=== PATIENT | female | born 1940 | race Caucasian/White ===

== ENCOUNTER → 2017-07-14 | Outpatient (CLI) | payer BC, OTHER ==
[~2017-07-14] MED LIST: ALEVE220 MG PO; AMBIEN 5 MG TABL5 M1 PO; ASPIR 8181 MG PO; BENICAR20 MG PO; CURCUMIN1 GM MC; FISH OIL 1,0001 EAC5; FOLIC ACID1 MG PO; GLUCOSAMIN-CHO1 EACH; IFEREX 150150 MG PO; KEFLEX500 M2 PO; LIORESAL 10 MG10 MG PO; LIPITOR 20 MG T20 M1 PO; MAGOX 400400 MG PO; MOTION RELIEF25 MG PO; NATURAL BP MED; PREDNISONE 10 M10 M1 PO; PROZAC20 MG PO; RED YEAST RICE600 MG; TUMS PO; VITAMIN B COMP1 EAC7; VITAMIN D400 UNI1; VITCB500GO
== END ==
LOC: M.CT 10:26
DX: K80.50 Calculus of bile duct without cholangitis or cholecystitis without obstruction (principal); K44.9 Diaphragmatic hernia without obstruction or gangrene; M47.896 Other spondylosis, lumbar region; J98.11 Atelectasis; D50.9 Iron deficiency anemia, unspecified; K31.89 Other diseases of stomach and duodenum; I70.0 Atherosclerosis of aorta; R07.89 Other chest pain

== ENCOUNTER 2017-08-27 14:57 | Emergency (ER) | payer BC, OTHER ==
[~2017-08-27] VITALS: Ht 160 cm; Wt 45.4 kg
[~2017-08-27 14:57] MED LIST changes: -ALEVE220 MG PO; -ASPIR 8181 MG PO; -FOLIC ACID1 MG PO; -IFEREX 150150 MG PO; -KEFLEX500 M2 PO; -LIORESAL 10 MG10 MG PO; -LIPITOR 20 MG T20 M1 PO; -PREDNISONE 10 M10 M1 PO; -PROZAC20 MG PO
[2017-08-27] MEDS ORDERED: AMBIEN 5 MG TABL5 M1 PO (15:18)
[2017-08-27] MEDS ORDERED: PREDNISONE 10 M10 M1 PO (16:01)
[2017-08-27] MEDS ORDERED: KEFLEX500 M2 PO (16:01)
[2017-08-27 16:24] VITALS: BP 139/65
== END 2017-08-27 16:27 | disposition home or self-care (01) ==
LOC: M.ERS 14:57
DX: L03.116 Cellulitis of left lower limb (principal); E78.5 Hyperlipidemia, unspecified; I10 Essential (primary) hypertension; F41.9 Anxiety disorder, unspecified

== ENCOUNTER 2017-09-22 15:05 | Inpatient (IN) | payer BC, OTHER ==
[~2017-09-22] VITALS: Ht 160 cm; Wt 44.0 kg
[~2017-09-22 15:05] MED LIST changes: +KEFLEX500 M2 PO; +PREDNISONE 10 M10 M1 PO
[2017-09-22] MEDS ORDERED: LIPITOR 20 MG T20 M1 PO (15:16)
[2017-09-22] MEDS ORDERED: ASPIR 8181 MG PO (15:17)
[2017-09-22] MEDS ORDERED: PROZAC20 MG PO (15:18)
[2017-09-22 18:15] VITALS: BP 155/89
--- NOTE | 2017-09-22 18:55 | NUR ---
ASSUMMED CARE OF PT UPON ADMISSION TO UNIT, PT ALERT AND ORIENTED, PT TRANSFERS WITH MIN/MOD ASSIST OF 1 AND GB, PT COMPLAINS OF PAIN IN RIGHT KNEE, DENIES NAUSEA, TOLERATING SOFT DIET FOR DINNER, PT AND DAUGHTER EDUCATED ON REHAB ROUTINE, ORIENTED TO ROOM, ASSESSMENT COMPLETE, WILL CONTINUE TO MONITER.
--- NOTE | 2017-09-22 20:55 | NUR ---
SITTING UP IN BED WATCHING NEWS ON TV. TYLENOL GIVEN FOR C/O ARTHRITIC PAIN IN RIGHT KNEE. TOOK MEDS WHOLE ONE AT A TIME WITH APPLE JUICE. SAT UP ON SIDE OF BED WHILE TAKING THE MEDS.
[2017-09-23 04:48] LABS: HEMATOCRIT 28.4 % (37.0-47.0); HEMOGLOBIN 9.6 gm/dL (12.0-15.0); MCH 29.5 pg (26.0-34.0); MCV 86.9 fL (80.0-100.0); MPV 6.8 fl. (7.2-11.1); RBC 3.27 mil/uL (4.20-5.00)
[2017-09-23 04:57] LABS: CALCIUM 8.5 mg/dL (8.5-10.1); CREATININE 0.7 mg/dL (0.6-1.3); POTASSIUM 4.1 mmol/L (3.5-5.1)
--- NOTE | 2017-09-23 05:58 | NUR ---
UP X ONE DURING THE NIGHT TO THE BATHROOM TO VOID. INCONTINENT OF URINE ON THE FLOOR. NO FURTHER C/O PAIN. HOURLY ROUNDING IN PROGRESS.
[2017-09-23 08:00] VITALS: BP 152/70
--- NOTE | 2017-09-23 12:48 | NUR ---
Nutrition: Pt admitted to Rehab with CVA. No albumin recorded. Pt is tolerating Ground meals. RX noted. PMHx noted. Pt not in room at time of visit, 12:25. +BM. Eating ~60% of meals. Wt: 95#, last month wt was 100#. Pt is underweight. RD ordered Boost+ t.i.d. for added nutrition. will follow weekly for po intake, supplement intake, wt, labs. Mild risk.
--- NOTE | 2017-09-23 13:09 | NUR ---
PT CARE ASSUMED THIS AM, ASSESSMENT AND VITAL SIGNS COMPLETED DOCUMENTED. PT HAS BEEN PLEASANT AND COOPERATIVE. RESIDUAL LEFT FACIAL DROOP, SLURRED SPEECH AND LEFT SIDED WEAKNESS NOTED DURING OUR INTERACTION THIS AM. PT ENCOURAGED TO CALL FOR ASSISTANCE, NO IMPULSIVE BEHAVIOR NOTED THIS AM. FALL PRECAUTIONS AND HOURLY ROUNDING OBSERVED.
[2017-09-23 19:46] VITALS: BP 143/72
--- NOTE | 2017-09-23 20:55 | NUR ---
RESTING QUIETLY IN BED AND WATCHING TV. TYLENOL GIVEN FOR C/O ARTHRITIC PAIN IN LEFT KNEE. TOOK MEDS WHOLE TWO AT A TIME WITH TEA.
--- NOTE | 2017-09-24 05:38 | NUR ---
UP X TWO DURING THE NIGHT TO THE BATHROOM TO VOID. NO FURTHER C/O PAIN. HOURLY ROUNDING IN PROGRESS.
[2017-09-24 07:48] VITALS: BP 149/80
--- NOTE | 2017-09-24 13:47 | NUR ---
SW met with pt to complete initial assessment, introduce self, and SW role as well as to review team conference summary and discuss safe dc planning. Pt alert and oriented and pleasant. Pt lives at home with her and a dtr plans to stay with pt at dc to assist as needed. Pt has a RW and a cane. SW relayed information reported from therapists during team conference and team's recommendation to reteam to reassess pt length of stay during team conference next Thursday. Pt in agreement with plan. No other needs or concerns expressed. SW to continue to follow to assist with safe dc planning.
--- NOTE | 2017-09-24 16:54 | NUR ---
AM ASSESSMENT AND VITAL SIGNS COMPLETED DOCUMENTED. PT PARTICIPATED WITH ALL THERAPIES AND IS PROGRESSING WELL. DIET HAS BEEN CHANGED TO REGULAR. PT CALLS FOR ASSISTANCE WHEN SHE NEEDS HELP. FALL PRECAUTIONS AND HOURLY ROUNDING CONTINUE.
[2017-09-24 20:23] VITALS: BP 154/75
--- NOTE | 2017-09-25 05:32 | NUR ---
ASSUMED CARES AT 1915. PT ALERT AND ORIENTED. PLEASANT. CVA WITH LEFT SIDE WEAKNESS. LEFT ARM WEAK. TAKES PILLS WHOLE WITHOUT ISSUES. SHE IS A MIN ASSIST WITH GAIT BELT. UP TO BATHROOM FEW TIMES DURING THE NIGHT. DOES PERICARES BUT NEEDS ASSIST WITH ONE SIDED DRESSING. WEARS PULLUPS. HAS STRESS INCONTINENCE. TYLENOL GIVEN FOR RIGHT KNEE PAIN. PT MOVES WELL IN BED AND IS ABLE TO SCOOT UP IN BED. SHE CAN TURN SELF IN BED. USED CALL LIGHT APPROPRIATELY. BED ALARM ON.
[2017-09-25 07:30] VITALS: BP 140/75
--- NOTE | 2017-09-25 16:53 | NUR ---
PT HAS PARTICIPATED WITH THERAPIES AND CALLS FOR ASSIST TO BATHROOM. PT AMBULATES WITH GAITBELT AND MIN ASSIST OF 1. PT KEEPS LT ARM IN VISUAL FIELD. PRN FOR RT.KNEE PAIN GIVEN WITH GOOD EFFECT THIS AFTERNOON WITH LIDODERM PATCH PLACED TO RT. KNEE. PT ALERT AND ORIENTATED AND PROGRESSES TOWARDS GOALS AND HOURLY ROUNDING CONTINUES.
[2017-09-25 20:23] VITALS: BP 135/67
--- NOTE | 2017-09-25 22:27 | NUR ---
ASSUMED CARE AT 1930. PATIENT S/P CVA. LT SIDED WEAKNESS. LT FACIAL DROOP NOTED. ABLE TO MOVE LEFT ARM SLIGHTLY, BUT CAN'T GRASP WELL. TAKES PILLS ONE AT A TIME WITH WATER. UP WITH ONE, MIN ASSIST, GAIT BELT, WALKER. VOIDS PER TOILET. LEFT LEG ALSO WEAK. WEARS PULLUPS. TOOK NAPROXEN AT HS. HOURLY ROUNDS CONTINUE. BED ALARM ON. CALL LITE IN REACH.
--- NOTE | 2017-09-26 05:43 | NUR ---
SLEPT MOST OF THE NIGHT. UP ONCE TO VOID AFTER GOING TO BED. STEADYING ASSIST NEEDED. INCONTINENT OF URINE IN PULLUP. NEEDS HELP CHANGING BRIEF BUT CAN DO SOME. NO C/O PAIN. TURNS SELF AND WAS OBSERVED SLEEPING ON SIDE MOST OF THE NIGHT. PILLOW OFFERED TO LT ARM FOR SUPPORT. CALL LITE IN REACH. BED ALARM ON. HOURLY ROUNDS CONTINUE.
[2017-09-26 07:00] VITALS: BP 150/79
--- NOTE | 2017-09-26 16:33 | NUR ---
ASSUMMED CARE OF PT AT 0730, PT ALERT AND ORIENTED, PT TRANSFERS WITH MIN ASSIST AND GB, PT COMPLAINS OF PAIN IN HER RIGHT KNEE, LIDOCAINE PATCH APPLIED, TAKING FOOD AND FLUIDS WELL, NEEDS ENCOURAGEMENT TO DRINK SUPPLEMENT, VOIDS WITHOUT DIFFICULTY PER TOILET, LEFT ARM WEAK, AMBULATED TO DININGROOM FOR LUNCH, PARTICIPATED IN ALL THERAPIES, HOURLY ROUNDING COMPLETED, ASSESSMENT COMPLETE, WILL CONTINUE TO MONITER.
[2017-09-26 20:00] VITALS: BP 150/68
--- NOTE | 2017-09-26 23:03 | NUR ---
ASSUMED CARE AT 1930. PATIENT S/P CVA WITH LT SIDED WEAKNESS. LT ARM WEAK, CAN BEND ARM AT ELBOW AND RAISE IT SLIGHTLY, BUT MIDDLEWARE ARCHITECT IS VERY WEAK. LT LEG ALSO WEAK. UP WITH STEADYING GAIT, GB NO DEVICE TO TOILET TO VOID. GAIT SLIGHTLY STEADIER THAN LAST NIGHT, BUT PATIENT TENDS TO GRAB FURNATURE/SINK ALONG THE WAY. ABLE TO GET PANTS DOWN BETTER THAN PULLING THEM UP ON THE LEFT SIDE. TOOK MOM AT HS. WANTED 2.5 MG OF AMBIEN, HALF TAB GIVEN, SEE MAR. TURNS SELF AND PREFERS TO SLEEP ON SIDE. REFUSES TO OFFLOAD HEELS DESPITE EDUCATION. HOURLY ROUNDS CONTINUE. CALL LITE IN REACH. BED ALARM ON.
--- NOTE | 2017-09-27 05:37 | NUR ---
SLEPT MOST OF THE SHIFT. TURNS SELF TO SIDE. NO C/O PAIN. BED ALARM ON. CALL LITE IN REACH. HOURLY ROUNDS CONTINUE.
[2017-09-27 08:00] VITALS: BP 152/80
--- NOTE | 2017-09-27 16:31 | NUR ---
ASSUMMED CARE OF PT AT 0730, PT ALERT AND ORIENTED, PT TRANSFERS WITH MIN ASSIST GB , PT REACHES OUT FOR FURNITURE AT TIMES TO STEADY HERSELF NEEDS CUEING AT TIMES TO NOT USE FURNITURE, AMBULATED TO BATHROOM SEVERAL TIMES THRU OUT SHIFT, PT DENIES PAIN, DENIES NAUSEA, TAKING FOOD AND FLUIDS WELL, PT UP IN CHAIR MUCH OF SHIFT, RIGHT ARM WEAK, PT DID BATHING AND GROOMING WITH SET UP TO MIN ASSIST AND DRESSING WITH MOD ASSIST, HOURLY ROUNDING COMPLETED, ASSESSMENT COMPLETE, WILL CONTINIUE TO MONITOR.
[2017-09-27 20:00] VITALS: BP 156/75
--- NOTE | 2017-09-27 23:04 | NUR ---
ASSUMED CARE AT 1930. PATIENT S/P CVA WITH LT SIDED WEAKNESS. LT LEG WEAK, LT ARM MOVES BUT SHE LACKS GRASPING ABILITIES. ALSO RT KNEE HURTS WHICH MAKES IT DIFFICULT GETTING UP AND DOWN FROM SEATED POSITION. NEEDS A COUPLE OF SECONDS TO STABILIZE AFTER RISING BEFORE STARTING AMBULATION. REINFORCED NEED TO AVOID FURNITURE WALKING FOR SAFETY AND STRENGTHENING. DOES OWN HYGIENE. NEEDS HELP THREADING LEGS THROUGH PULLUP, CAN'T BEND RT KNEE WELL, AND LT KNEE WEAK. ALSO NEEDS HELP GETTING PANTS UP AND DOWN ON LEFT SIDE. IS USING LT HAND MUCH SHE CAN. TURNS SELF. TAKES PILLS ONE AT A TIME WITH WATER. BRUSHED OWN TEETH. HOURLY ROUNDS CONTINUE. BED ALARM ON. CALL LITE IN REACH.
--- NOTE | 2017-09-28 05:39 | NUR ---
SLEPT MOST OF THE NIGHT. TURNS SELF AND SLEPT MOSTLY ON HER SIDE. NO C/O PAIN. VOIDED PER TOILET. HOURLY ROUNDS CONTINUE. BED ALARM ON. CALL LITE IN REACH.
[2017-09-28 08:00] VITALS: BP 151/76
--- NOTE | 2017-09-28 16:10 | NUR ---
pt has participated with therapies and calls for assist to ambulate to bathroom. with gaitbelt and min assist. pt continent of b+b with occasional dribbling due to urgency. pt denies pain . pt eats meals in dinningroom and visits with others. pt remains alert and orientated and has lt facial droop and lt arm weakness. pt continues to progress towards goals and hourly rounding continues.
[2017-09-28 21:00] VITALS: BP 159/71
[2017-09-29 04:52] LABS: HEMATOCRIT 28.6 % (37.0-47.0); HEMOGLOBIN 9.8 gm/dL (12.0-15.0); MCH 29.5 pg (26.0-34.0); MCHC 34.1 g/dL (28.0-37.0); MCV 86.4 fL (80.0-100.0); MPV 6.9 fl. (7.2-11.1); RBC 3.32 mil/uL (4.20-5.00); RDW-CV 15.9 % (10.5-14.5); WBC 5.7 thou/uL (4.0-11.0)
[2017-09-29 05:07] LABS: CALCIUM 8.6 mg/dL (8.5-10.1); CREATININE 0.8 mg/dL (0.6-1.3); POTASSIUM 3.9 mmol/L (3.5-5.1)
--- NOTE | 2017-09-29 05:07 | NUR ---
ASSUMED CARES AT 1920. PT ALERT AND ORIENTED. PLEASANT. CVA WITH LEFT SIDE WEAKNESS. TAKES PILLS WHOLE WITHOUT ISSUES. C/O PAINT TO RIGHT KNEE. TYLENOL GIVEN. SHE IS A MIN ASSIST WITH GAIT BELT. UP TO BATHROOM FEW TIMES DURING THE NIGHT. SLEPT WELL OTHERWISE. USED CALL LIGHT APPROPRIATLEY. BED ALARM ON.
[2017-09-29 07:30] VITALS: BP 147/76
--- NOTE | 2017-09-29 16:40 | NUR ---
pt has parotcipated with therapies and calls for assist to bathroom with gaitbelt and steady gait and assist of 1. pt reminded to bend rt. knee when walking or sitting. pt alert and orientated and able to voice needs. prn for rt. knee pain given with good effect today. pt voids well with no bm today. pt progresses towards goals and hourly rounding continues.
[2017-09-29 19:45] VITALS: BP 138/76
--- NOTE | 2017-09-30 05:11 | NUR ---
ASSUMED CARES AT 1920. PT ALERT AND ORIENTED. PLEASANT. LEFT ARM WEAK. LEFT FACIAL DROOP. DROOLS ONTO LEFT SIDE AFTER TAKING A DRINK. TYLENOL GIVEN FOR RIGHT KNEE PAIN. SHE IS A MIN ASSIST WITH GAIT BELT. UP TO BATHROOM FEW TIMES DURING THE NIGHT. WEARS PULLUPS FOR STRESS INCONTINENCE. STAFF ASSIST WITH CHANGING OR ONE SIDED DRESSING. SLEPT WELL OTHWERISE. CALL LIGHT IN REACH AND BED ALARM ON.
[2017-09-30 08:12] VITALS: BP 143/78
--- NOTE | 2017-09-30 15:46 | NUR ---
SW met with pt, pt dtr, pt step son, two of pt friends and reviewed team conference summary. Plan for pt to continue on rehab at least another week with team to reassess pt length of stay during team conference on Saturday 10/07. Pt was hopeful she would be ready to dc sooner, but was in agreement with plan and wanted to continue to make more progress in therapies. No questions or concerns at this time. SW to continue to follow to assist with safe dc planning.
--- NOTE | 2017-09-30 16:53 | NUR ---
ASSUMMED CARE OF PT AT 0730, PT TRANSFERS WITH ASSIST OF 1, GB AND CANE, PT COMPLAINS OF PAIN/STIFFNESS IN RIGHT LEG, LIDOCAINE PATCH TO RIGHT KNEE, PT DENIES NEED FOR ADDITIONAL PAIN MEDICATION, PT HAD LUNCH IN DININGROOM, PT VOIDS PER TOILET, HAS SOME URGENCY, TAKING FOOD AND FLUIDS WELL, PARTICIPATED IN ALL THERAPIES, HOURLY ROUNDING COMPLETED, ASSESSMENT COMPLETE, WILL CONTINUE TO MONITOR.
[2017-09-30 20:00] VITALS: BP 145/70
--- NOTE | 2017-10-01 05:32 | NUR ---
ASSUMED CARES AT 1920. PT ALERT AND ORIENTED. PLEASANT. CVA WITH LEFT SIDE WEAKNESS. LEFT ARM IS WEAK. RIGHT LEG IS STIFF. TYLENOL GIVEN FOR PAIN. ONLY WANTS TO TAKE AMBIEN 1/2 TAB AT BEDTIME. TAKES PILLS ONE AT A TIME WITHOUT ISSUES. SHE IS A SBA WITH GAIT BELT AND CANE. UP TO BATHROOM. NEEDS ASSIST WITH DRESSING. WEARS PULLUPS FOR STRESS INCONTINENCE. SLEPT WELL MOST OF THE NIGHT. CALL LIGHT IN REACH AND BED ALARM ON.
[2017-10-01 07:45] VITALS: BP 141/78
--- NOTE | 2017-10-01 16:45 | NUR ---
PT HAS PARTICIPATED WITH THERAPIES AND AMBULATES WITH STEADY GAIT,GAITBELT AND SBA WITH CANE. PRN FOR RT.KNEE PAIN GIVEN THIS AM WITH GOOD EFFECT, PT REPORTS LESS RT.KNEE STIFFNESS WITH USE OF MUSCLE RELAXER. PT REMAINS ALERT AND ORIENTATED AND CALLS FOR ASSIST TO BATHROOM. PT HAS STRESS INC AND WEARS BREIF WITH SELF FILIBERTO CARE AFTER VOIDING. PT ABLE TO CHANGE BREIF AND ADJUST CLOTHING WITH EXTRA TIME. PT PROGRESSES TOWARDS GOALS AND HOURLY ROUNDING CONTINUES.
[2017-10-01 20:17] VITALS: BP 155/77
--- NOTE | 2017-10-02 05:50 | NUR ---
ASSUMED PT CARE AT 1930. PT ALERT AND ORIENTED X4, PLEASANT AND COOPERATIVE WITH CARES. CVA WITH LEFT SIDE WEAKNESS. RIGHT LEG STIFFNESS. TYLENOL X1 THIS SHIFT FOR PAIN. PT TAKES 1/2 OF ONE AMBIEN AT HS. TAKES PILLS ONE AT A TIME WITH WATER WITHOUT DIFFICULTY. UP WITH SBA, GAIT BELT AND CANE. UP TO BATHROOM X3 OVERNIGHT. PT WEARS PULLUPS FOR STRESS INCONTINENCE. SLEPT WELL OVERNIGHT. CALL LIGHT AND FREQUENTLY USED ITEMS WITHIN REACH. BED ALARM ON FOR SAFETY. HOURLY ROUNDING IN PROGRESS, WILL CONTINUE TO MONITOR.
[2017-10-02 07:00] VITALS: BP 150/84
--- NOTE | 2017-10-02 16:30 | NUR ---
ASSUMMED CARE OF PT AT 0730, PT ALERT AND ORIENTED, PT TRANSFERS WITH SBA, GB AND CANE, PT RIGHT LEG IS STIFF/PAINFUL, LIDOCAINE PATCH APPLIED AND MEDICATED WITH 1 TYLENOL PER PT REQUEST. PT TAKING FOOD AND FLUIDS WELL,VOIDS PER TOILET, PARTICIPATED IN ALL THERAPIES, HOURLY ROUNDING COMPLETED ASSESSMENT COMPLETE, WILL CONTINUE TO MONITOR,
[2017-10-02 20:00] VITALS: BP 146/82
--- NOTE | 2017-10-03 05:47 | NUR ---
ASSUMED PT CARE AT 1930. PT ALERT AND ORIENTED X4, POLITE AND COOPERATIVE WITH CARES. CVA WITH LEFT SIDED WEAKNESS. RIGHT LEG STIFFNESS. TYLENOL X1 FOR PAIN AT HS WELL 1/2 AMBIEN PER PT REQUEST. TAKES PILLS ONE AT A TIME WITH WATER WITHOUT DIFFICULTY. UP WITH SBA, GAIT BELT AND CANE. UP TO BATHROOM TO VOID X3 OVERNIGHT. PT WEARS BRIEF FOR STRESS INCONTINENCE. SLEPT WELL OVERNIGHT. CALL LIGHT AND FREQUENTLY USED ITEMS WITHIN REACH. USES CALL LIGHT APPROPRIATELY. BED ALARM ON FOR SAFETY. HOURLY ROUNDING IN PROGRESS, WILL CONTINUE TO MONITOR.
[2017-10-03 07:30] VITALS: BP 159/76
--- NOTE | 2017-10-03 15:53 | NUR ---
ASSUMED CARE AT 0730. ALERT ORIENTED PLEASANT COOPERATIVE. HX OF CVA WEAKNESS. TRANSFERS WITH SBA G BELT CANE AMBULATES TO TOILET TO VOID ABLE TO DO HYGEINE BUT NEEDS MIN ASSIST WITH CLOTHING ADJUSTMENTS. L SIDE WEAKNESS AND TIGHT SLACKS ON. PARTICIPATING IN THERAPIES THROUGHOUT THE DAY. TO DR GILBERT FOR LUNCH MEAL, APPETITE GOOD FEEDS SELF AND TAKES MEDS WITHOUT DIFFICULTY. MEDICATED WITH 1 TAB TYLENOL FOR RT. KNEE PAIN LIDODERM PATCH ON RT. KNEE. USES CALL LIGHT APPROPRIATELY FOR ASSIST. DAUGHTER HERE VISITING AT LUNCH AND EARLY AFTERNOON FIXED PTS. HAIR.
[2017-10-03 20:00] VITALS: BP 147/72
--- NOTE | 2017-10-04 05:22 | NUR ---
ASSUMED PT CARE AT 1930. PT ALERT AND ORIENTED X4, SITTING UP IN BED WATCHING TELEVISION WITH , POLITE AND COOPERATIVE WITH CARES. H/O CVA. TYLENOL FOR PAIN AT HS WELL 1/2 AMBIEN PER PT REQUEST. TAKES PILLS ONE AT A TIME WITHOUT DIFFICULTY. UP WITH SBA, GAIT BELT AND CANE. UP TO BATHROOM TO VOID X3 OVERNIGHT. PT WEARS BRIEFS FOR STRESS INCONTINENCE. SLEPT WELL OVERNIGHT. USES CALL LIGHT APPROPRIATELY. CALL LIGHT AND FREQUENTLY USED ITEMS WITHIN REACH. BED ALARM ON FOR SAFETY. HOURLY ROUNDING IN PROGRESS, WILL CONTINUE TO MONITOR.
[2017-10-04 07:30] VITALS: BP 158/72
--- NOTE | 2017-10-04 14:59 | NUR ---
ASSUMED CARE AT 0730. ALERT ORIENTED PLEASANT COOPERATIVE. HX OF CVA WITH WEAKNESS. TRANSFERS WITH SBA G BELT CANE AMBULATES TO BR TO VOID AND ALSO TO DR FOR MEALS. APPETITE GOOD FEEDS SELF WITH SET UP. USES CALL LIGHT APPROPRIATELY FOR ASSIST. TAKES MEDS WITHOUT DIFFICULTY. HAS HAD VISITORS THROUGHOUT THE DAY INCLUDING DAUGHTER AND . MEDICATED X 1 FOR C/O RT. KNEE PAIN WITH TYLENOL WITH SOME RELIEF.
[2017-10-04 16:00] LABS: CALCIUM 8.6 mg/dL (8.5-10.1); CREATININE 0.7 mg/dL (0.6-1.3); POTASSIUM 3.8 mmol/L (3.5-5.1)
[2017-10-04 16:02] LABS: ABSOLUTE BASOPHILS 0.1 thou/uL (0.0-0.2); ABSOLUTE EOSINOPHILS 0.1 thou/uL (0.0-0.7); ABSOLUTE MONOCYTES 0.6 thou/uL (0.0-1.2); ABSOLUTE NEUTROPHILS 4.8 thou/uL (1.6-8.1); BASOPHILS 1.3 %; EOSINOPHILS 2.2 %; HEMATOCRIT 29.3 % (37.0-47.0); HEMOGLOBIN 9.8 gm/dL (12.0-15.0); LYMPHOCYTES 14.9 %; MCH 28.9 pg (26.0-34.0); MCHC 33.4 g/dL (28.0-37.0); MCV 86.6 fL (80.0-100.0); MONOCYTES 8.8 %; MPV 6.6 fl. (7.2-11.1); NUCLEATED RBCS 0 /100WBC; PLATELET COUNT* 256 thou/uL (150-400); POLYS 72.8 %; RBC 3.38 mil/uL (4.20-5.00); RDW-CV 15.5 % (10.5-14.5); WBC 6.7 thou/uL (4.0-11.0)
--- NOTE | 2017-10-04 17:30 | NUR ---
PT. RESTING IN BED AFTER FAMILY LEFT, Q 1 HR. ROUNDING DONE. DENIES REQUESTS.
[2017-10-04 20:00] VITALS: BP 144/78
[2017-10-05 04:17] LABS: ABSOLUTE BASOPHILS 0.1 thou/uL (0.0-0.2); ABSOLUTE EOSINOPHILS 0.2 thou/uL (0.0-0.7); ABSOLUTE MONOCYTES 0.7 thou/uL (0.0-1.2); ABSOLUTE NEUTROPHILS 4.1 thou/uL (1.6-8.1); BASOPHILS 1.2 %; EOSINOPHILS 3.1 %; HEMATOCRIT 30.3 % (37.0-47.0); HEMOGLOBIN 10.1 gm/dL (12.0-15.0); LYMPHOCYTES 16.1 %; MCH 28.7 pg (26.0-34.0); MCHC 33.3 g/dL (28.0-37.0); MCV 86.1 fL (80.0-100.0); MONOCYTES 11.8 %; MPV 6.8 fl. (7.2-11.1); NUCLEATED RBCS 0 /100WBC; PLATELET COUNT* 250 thou/uL (150-400); POLYS 67.8 %; RBC 3.52 mil/uL (4.20-5.00); RDW-CV 15.9 % (10.5-14.5)
[2017-10-05 04:28] LABS: CALCIUM 8.7 mg/dL (8.5-10.1); CREATININE 0.9 mg/dL (0.6-1.3); POTASSIUM 4.1 mmol/L (3.5-5.1)
--- NOTE | 2017-10-05 05:40 | NUR ---
ASSUMED CARES AT 1920. PT ALERT AND ORIENTED. PLEASANT. C/O PAIN TO RIGHT KNEE. TYLENOL GIVEN. TAKES PILLS ONE BY ONE WITHOUT ISSUES. SHE IS A MIN ASSIST WITH GAIT BELT AND CANE. UP TO BATHROOM. WEARS PULLUPS. DID HAVE URINARY STRESS INCONTINENCE. RN ASSISTED WITH CHANGING AND DRESSING. SLEPT WELL MOST OF THE NIGHT. USED CALL LIGHT APPROPRIATELY. BED ALARM ON.
[2017-10-05 07:48] VITALS: BP 147/74
[2017-10-05 12:28] VITALS: BP 147/74
--- NOTE | 2017-10-05 14:28 | NUR ---
ASSUMED CARE AT 0730. ALERT ORIENTED PLEASANT COOPERATIVE. HX OF CVA L SIDE WEAKNESS. TRANSFERS WITH SBA G BELT CANE. AMBULATES TO BR TO VOID WEARS PULLUPS NEEDS SOME ASISST TO PULL L SIDE OF SLACKS UP. MEDICATED WITH PRN TYLENOL FOR RT. KNEE PAIN BEFORE THERAPIES. USES CALL LIGHT APPROPRIATELY FOR ASSISTANCE. BED CHAIR ALARM FOR PT. SAFETY. FEEDS SELF WITH SET UP APPETITE GOOD TAKES MEDS WITHOUT DIFFICULTY. PARTICIPATES IN THERAPIES THROUGHOUT THE DAY.
--- NOTE | 2017-10-05 17:57 | NUR ---
HOURLY ROUNDING EVERY 1 HR. DENIES CONCERNS RESTED IN BED AFTER THERAPIES.
[2017-10-05 20:00] VITALS: BP 157/71
--- NOTE | 2017-10-06 06:04 | NUR ---
ASSUMED PT CARE AT 1930. PT ALERT AND ORIENTED X4, POLITE AND COOPERATIVE WITH CARES. HX OF CVA WITH LEFT SIDE WEAKNESS. C/O RIGHT KNEE PAIN, PRN TYLENOL GIVEN. AMBIEN GIVEN AT HS. PT TAKES PILLS ONE AT A TIME WITH WATER WITHOUT DIFFICULTY. UP WITH MIN ASSIST, GAIT BELT AND CANE TO BATHROOM TO VOID. WEARS PULLUPS. STRESS INCONTINENCE X1. NEEDS ASSIST WITH PULLING UP LEFT SIDE OF BRIEF. BED ALARM ON FOR SAFETY. CALL LIGHT AND FREQUENTLY USED ITEMS WITHIN REACH. USES CALL LIGHT APPROPRIATELY. HOURLY ROUNDING IN PROGRESS, WILL CONTINUE TO MONITOR.
[2017-10-06 08:30] VITALS: BP 159/77
--- NOTE | 2017-10-06 17:14 | NUR ---
pt has participated with therapies and calls for assist to bathroom. pt voids well but is often incontinent of bladder and needs breif changed with toileting. pt able to cleanse self and adjust clothing with extra time. ptn for pain to rt. knee given with food effect, pl tylenol. pt ambulates with cand ans sba of 1 with gaitbelt on. pt remains alert and orientated and progresses towards goals. hourly rounding continues.
[2017-10-06 19:48] VITALS: BP 148/68
--- NOTE | 2017-10-07 05:27 | NUR ---
ASSUMED PT CARE AT 1930. PT ALERT AND ORIENTED X4, POLITE AND COOPERATIVE WITH CARES. HX OF CVA. C/O RIGHT KNEE PAIN, PRN TYLENOL GIVEN. YANDY AT HS PER PT REQUEST. PT TAKES PILLS ONE AT A TIME WITH WATER WITHOUT DIFFICUTLY. UP WITH MIN ASSIST, GAIT BELT AND CANE TO BATHROOM NUMEROUS TIMES OVERNIGHT TO VOID. PT WEARS BRIEFS, CHANGED SEVERAL TIMES OVERNIGHT. NEEDS ASSIST WITH PULLING UP LEFT SIDE OF BRIEFS. BED ALARM ON FOR SAFETY. CALL LIGHT AND FREQUENTLY USED ITMES WITHIN REACH. USES CALL LIGHT APPROPRIATELY. HOURLY ROUNDING IN PROGRESS, WILL CONTINUE TO MONITOR.
[2017-10-07 07:42] VITALS: BP 155/85
--- NOTE | 2017-10-07 15:15 | NUR ---
pt sitting on side of bed and has signed consent for right knee injection given by WITH AT BEDSIDE. PT ALERT AND ORIENTATED AND HAS TOLERATED PROCEDURE WELL. PT HAD SIGNED CONSENT AND IS AT BEDSIDE. PT RESTS IN BED NOW WITH CALL LIGHT IN REACH AND BED ALARM ON.
--- NOTE | 2017-10-07 15:55 | NUR ---
SW reviewed team conference summary with pt. Pt was aware and in agreement with plan for pt to dc home with family on Thursday with HH services to follow. Pt had already arranged with PT for to come in for family training and car transfer at 2:30 pm on . SW to continue to follow to assist with finalizing safe dc plan.
--- NOTE | 2017-10-07 16:43 | NUR ---
PT HAS PARTICIPATED WITH THERAPIES AND CALLS FOR ASSIST NEEDS. PT ANBULATES WITH STEADY GAIT AND USE OF CANE WITH SBA. PT HAS BEEN INC OF URINE AND WEARS BREIF AND IS ABLE TO CHANGE THEM IN BATHROOM WITH EXTRA TIME. PRN PL.TYLENOL GIVEN FOR RT. KNEE PAIN WITH FAIR EFFECT. PT HAD RT. KNEE INJECTED THIS AFTERNOON AND DENIES FURTHER DISCOMFORT. PT REMAINS ALERT AND ORIENTATED AND PLANS TO DISCHARGE TO HOME THURSDAY WITH SOME FAMILY TRAINING TOMORROW AFTERNOON. HOURLY ROUNDING CONTINUES.
[2017-10-07 19:45] VITALS: BP 148/78
--- NOTE | 2017-10-08 | NUR ---
ASSUMED CARE AT 1930. PATIENT S/P CVA WITH LT SIDED WEAKNESS. ASSISTED WITH HS CARES. VOIDS PER TOILET, DOES HYGIENE AND CLOTHING ADJUSTMENTS WITH EXTRA TIME. INCONTINENT OF URINE, WEARS PULLUP. ABLE TO REMOVE PULLUPS BUT HAS TROUBLE DONNING PULLUP ON RIGHT LEG BECAUSE IT HURTS TO BEND. DOES OWN ORAL CARE. TURNS SELF. ABLE TO GET BOTH LEGS INTO BED. HAS PAIN IN RIGHT KNEE, BUT STATES SHE IS HOPEFUL THAT THE CORTISONE INJECTION SHE GOT TODAY WILL HELP. APAP GIVEN WITH GOOD RESULTS. STILL HAS TROUBLE BENDING THAT KNEE, AND THIS SLOWS HER DOWN WHILE SHE IS ATTEMPTING SITTING. C/O AREA TO LATERAL RIGHT ANKLE. SMALL PINPOINT AREAS NOTED, APPEARS TO HAVE BEEN RUBBED BY SHOE. DOES NOT APPEAR OPEN. HOURLY ROUNDS CONTINUE. BED ALARM ON. CALL LITE IN REACH.
[2017-10-08] MEDS ORDERED: LIORESAL 10 MG10 MG PO (05:13)
[2017-10-08] MEDS ORDERED: FOLIC ACID1 MG PO (05:13)
[2017-10-08] MEDS ORDERED: IFEREX 150150 MG PO (05:14)
[2017-10-08] MEDS ORDERED: ALEVE220 MG PO (05:15)
--- NOTE | 2017-10-08 05:52 | NUR ---
SLEPT ALL NIGHT EXCEPT TO VOID. UP WITH CGA, GAIT BELT, CANE. INCONTINENT OF URIEN, BUT IT WAS TRAPPED IN BRIEF. SHE BECOMES INCONTINENT WHEN SHE STANDS, STATES THAT THIS DID NOT HAPPEN BEFORE HER STROKE. STILL PAINFUL TO BEND KNEE, ESPECIALLY WHEN RISING AND SITTING. TWO SMALL AREAS ON RIGHT LATERAL ANKLE, PINPOINT SIZE, NOT APPEARING OPEN NOTED. PICTURE TAKEN, CLEANSES WITH SALINE AND MIPILEX DRESSING APPLIED. HOURLY ROUNDS CONTINUE. BED ALARM ON. CALL LITE IN REACH.
[2017-10-08 08:09] VITALS: BP 160/73
--- NOTE | 2017-10-08 13:51 | NUR ---
AM ASSESSMENT AND VITAL SIGNS COMPLETED DOCUMENTED. PT HAS BEEN PLEASANT AND COOPRATIVE, STATES SHE IS STARTING TO HAVE INCREASED FLEXIBILITY IN HER RIGHT KNEE. PT IS AMBULATING WITH A CANE, SUPERVISION ONLY. PT IS ANTICIPATING GOING HOME TOMORROW. FALL PRECAUTIONS AND HOURLY ROUNDING CONTINUE.
--- NOTE | 2017-10-08 15:08 | NUR ---
PT'S DAUGHTER AND HERE THIS AFTERNOON, FAMILY TRAINING COMPLETED.
--- NOTE | 2017-10-08 16:28 | NUR ---
SW spoke with HHs to determine availability of ST to provide vital stem as well as PT OT Nursing. Possibly [facility]; SW faxed orders for referral and SW will continue to follow to finalize safe dc plan. Pt to dc home with family on Monday 10/09.
[2017-10-08 20:00] VITALS: BP 139/91
[2017-10-08 21:45] VITALS: BP 147/74
--- NOTE | 2017-10-09 05:04 | NUR ---
ASSUMED CARES AT 1915. PT ALERT AND ORIENTED. PLEASANT. DENIED ANY NEED FOR PAIN MED. SHE IS A MIN ASSIST WITH GAIT BELT AND CANE. UP TO THE BATHROOM FEW TIMES DURING THE NIGHT. RN ASSISTED WITH ONE SIDED DRESSING. WEARS PULLUPS. HAD URINARY INCONTINENCE AND RN ASSISTED CHANGING. SLEPT WELL. USED CALL LIGHT APPRORPIATELY. BED ALARM ON.
[2017-10-09 07:38] VITALS: BP 152/81
[2017-10-09 10:02] VITALS: BP 147/74
--- NOTE | 2017-10-09 10:07 | NUR ---
PERRY spoke with pt and pt ; both are prepared for pt to dc home with today. Pt to provide pt ride home. Pt has needed DME. PERRY called and spoke with [facility] who can accept pt referral and provide PT OT and ST with vital stem; not staffing nursing, approved to not need nursing HH at this time; SW refaxed revised orders. No other needs or concerns expressed.
--- NOTE | 2017-10-09 12:49 | NUR ---
AM ASSESSMENT AND VITAL SIGNS COMPLETED DOCUMENTED. AM THERAPIES COMPLETED AND PATIENT HAS BEEN CLEARED FOR DISCHARGE. DISCHARGE INSTRUCTIONS DISCUSSED WITH PT, PRINTED COPY PROVIDED FOR HOME. PT AND HER BELONGINGS TRANSPORTED TO EXIT, DISCHARGED HOME IN STABLE CONDITION. HOME HEALTH WILL FOLLOW FOR FURTHER TREATMENT.
--- NOTE | 2017-10-27 13:29 | H ---
[address] [address] HISTORY AND PHYSICAL Name: JUNIORFRANK LEE Room: [address] IN M.R.#: [id number] Admission: 09/22/17 Attend Phys: Tara Regalado, Discharge: 10/09/17 Date of : 42 Report #: [id number] THIS REPORT FOR: //name// CC: Rafa Regalado DATE OF SERVICE: 09/22/2017 HISTORY OF PRESENT ILLNESS: This is a 77-year-old female admitted to inpatient rehabilitation to facilitate safe discharge home. She is right hand dominant female status post right MCA, CVA, who presented to [facility] on 09/15/2017 with slurred speech, facial droop, was outside of the window for TPA, had a recent GI bleed about a week prior. She is right-hand dominant. She does experience left upper and lower extremity hemiparesis. GI did follow along with her. She has multiple medical comorbidities. Previous level of function was modified independent to independent with activities of daily living. Current level of function is minimum to maximum assistance of 1-2 depending on therapy, activity and time of day. She does have [id number]-[id number] impairment of comprehension, expression, social interaction and problem solving. Currently, she is on the mechanical soft with thin liquid diet. No significant changes since the preadmission screening. Estimated length of stay is 19-21 days with discharge disposition to the home setting where she lives with a spouse who can provide supervision and assistance. She does have a walker. PAST MEDICAL HISTORY: Hypertension, Watts's palsy, recent GI bleed with hospitalization, hyperlipidemia, lower extremity cellulitis, right knee Martinez cyst. PAST SURGICAL HISTORY: Pacemaker placement, tonsillectomy, back surgery, polyps resection, GI clipping. ALLERGIES: No known drug allergies. SOCIAL HISTORY: No tobacco, alcohol or illicit drug use. FAMILY HISTORY: Heart disease and stroke. REVIEW OF SYSTEMS: A 14-point review of systems is done and is negative except as mentioned in HPI, specifically no fever, chest pain, shortness of breath, abdominal pain or distention, change in bowel or change in bladder. PHYSICAL EXAMINATION: GENERAL: Alert, oriented, in no apparent distress. VITAL SIGNS: Reviewed and are stable. HEENT: Head: Atraumatic, normocephalic. Pupils equal, round, reactive. ABDOMEN: Soft, nontender, [place] [address] HISTORY AND PHYSICAL Name: FRANK PACHECO DIVYA Room: [address] IN [facility]#: [id number] Admission: 09/22/17 Attend Phys: Tara Regalado DO Discharge: 10/09/17 Date of : 42 Report #: [id number] NEUROLOGIC: Cranial nerves 2-12 are grossly intact with no focal neuro deficits, 5/5 strength in the right upper and lower extremity. Mild aphasia, receptive and expressive is noted. A 3/5 strength in left upper and lower extremity. SKIN: Warm and dry. No rashes or lesions noted. ASSESSMENT: 1. 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 2. Multiple medical comorbidities requiring daily medical care including hypertension, recent gastrointestinal bleed with risk for bleed again, bilateral lower extremity cellulitis. PLAN: 1. Admission to inpatient rehabilitation. 2. PT, OT, speech, language, case management, nursing and HIMS to make evaluations and recommendations. 3. Plan of care is pending. 4. We will team her weekly. 5. Medication reconciliation was completed by myself. 6. She is noted to have some thrush. We will add Nystatin swish and swallow b.i.d. and p.r.n. <ELECTRONICALLY SIGNED> By: Tara Regalado DO 10/27/17 1329 1506 [id number] Regalado DO /nt
--- NOTE | 2017-10-27 13:29 | PLAN ---
[address] [address] REHAB UNIT PLAN OF CARE Name: JUNIORFRANK LEE Room: [address] IN M.R.#: [id number] Admission: 09/22/17 Attend Phys: Tara Regalado DO Discharge: 10/09/17 Date of : 42 Report #: [id number] THIS REPORT FOR: //name// CC: Rafa Regalado This is a 77-year-old right hand dominant female, status post right MCA CVA with residual left upper and lower extremity hemiparesis, aphasia and dysphagia. She has needs in physical and occupational therapy as well as speech and language pathology. Previous level of function was independent to modified independent with activities of daily living. Current level of function is minimum to maximum assistance of 1-2 depending on therapy, activity and time of day. She does have [id number] impairment of comprehension, expression, social interaction, and memory. Medical prognosis is good. Rehabilitation prognosis is good. Estimated length of stay is 19-21 days with discharge disposition to the home setting where she lives with her spouse who is able to give assistance and supervision if needed. Physical therapy will see the patient 60-90 minutes per day, 5 days per week, working on upper and lower body strength, balance, coordination, and navigation. Occupational therapy will work with the patient 60-90 minutes per day, 5 days per week, working on upper and lower body strength, balance, coordination, navigation, bathing, dressing, and toileting. Speech and language pathology will work with the patient 30-90 minutes per day, 5 days per week, working on aphasia, dysphagia, comprehension, expression, social interaction, and problem solving. This is an overall plan of care, may change from time to time, we will team her weekly and make changes to plan of care as needed. <ELECTRONICALLY SIGNED> By: Tara Regalado DO 10/27/17 1329 1508 [id number] Regalado DO /nt
--- NOTE | 2017-10-27 13:30 | D ---
[address] [address] DISCHARGE SUMMARY Name: JUNIORFRANK DIVYA Room: [address] IN M.R.#: [id number] Admission: 09/22/17 Attend Phys: Tara Regalado DO Discharge: 10/09/17 Date of : 42 Report #: [id number] THIS REPORT FOR: //name// CC: Rafa Regalado DATE OF SERVICE: 10/09/2017 DISCHARGE DIAGNOSES: Status post right middle cerebral artery cerebrovascular accident with residual left upper and lower extremity hemiparesis, aphasia and dysphagia. The patient is a 77-year-old female admitted with a right MCA CVA with residual left upper and lower extremity hemiparesis, facial droop, aphasia and dysphagia. She also has some significant spasticity in the right lower extremity of unknown etiology. This was precerebrovascular accident and is not new. She is right hand dominant. She did progress with her therapies quite well. She did pass a video swallow and was upgraded to regular diet with thin liquids. She did need some supervision and minimum assistance with higher level ADLs such as into and out of the shower or bath tub. Otherwise, she was essentially modified independent with activities of daily living. She will follow up with her primary care physician within 1 week, Neurology within 1-2 weeks. She will continue home health PT, OT and nursing as well as speech and language pathology with [employer]. Regular diet. Maintain fall precautions 26/01 supervision for some safety concerns. MEDICATIONS: Reviewed and reconciled by myself and are available in the MAR. DISCHARGE PHYSICAL EXAMINATION: GENERAL: Alert, oriented, no apparent distress. VITAL SIGNS: Reviewed and are stable. HEENT: Atraumatic, normocephalic. Pupils equal, round, reactive. ABDOMEN: Soft, nontender, nondistended. NEUROLOGIC: Cranial nerves 2-12 are grossly intact with no focal neuro deficits, 5/5 strength in bilateral upper and lower extremities on the left and 4/5 strength in the right lower extremity, 4/5 strength in the right upper extremity with the exception of the hand, which is 3/5 strength with wet [place] [address] DISCHARGE SUMMARY Name: FRANK PACHECO Room: [address] IN [facility]#: [id number] Admission: 09/22/17 Attend Phys: Tara Regalado DO Discharge: 10/09/17 Date of : 42 Report #: [id number] 2/5 strength with possible thumb. SKIN: Warm and dry. No rashes or lesions noted. <ELECTRONICALLY SIGNED> By: Tara Regalado DO 10/27/17 1330 [id number] Regalado DO /nt
== END 2017-10-09 12:52 | disposition home health service (06) | DRG 65 ==
LOC: M.REH 15:05
PROVIDERS: Family Medicine; Internal Medicine; ADMIT Physical Medicine & Rehabilitation
PROC: 3E0U33Z Introduction of Anti-inflammatory into Joints, Percutaneous Approach (ICD-10-PCS; principal; 2017-10-07)
PROC: 3E0U3BZ Introduction of Anesthetic Agent into Joints, Percutaneous Approach (ICD-10-PCS; principal; 2017-10-07)
DX: I63.9 Cerebral infarction, unspecified (principal); G81.94 Hemiplegia, unspecified affecting left nondominant side; L03.116 Cellulitis of left lower limb; L03.115 Cellulitis of right lower limb; R47.01 Aphasia; R13.10 Dysphagia, unspecified; R47.81 Slurred speech; R29.810 Facial weakness; I10 Essential (primary) hypertension; G51.0 Bell's palsy; E78.5 Hyperlipidemia, unspecified; D64.9 Anemia, unspecified; M17.11 Unilateral primary osteoarthritis, right knee; M71.20 Synovial cyst of popliteal space [Baker], unspecified knee; Z95.0 Presence of cardiac pacemaker; Z82.3 Family history of stroke; Z82.49 Family history of ischemic heart disease and other diseases of the circulatory system; Z79.82 Long term (current) use of aspirin; Z79.899 Other long term (current) drug therapy